=== PATIENT | female | born 1970 | race Caucasian/White ===

== ENCOUNTER 2016-05-12 08:29 | Observation (INO) | payer BC, OTHER ==
[2016-05-08 15:35] VITALS: Ht 167.6 cm; Wt 68.9 kg
[2016-05-08 15:50] VITALS: RESP 20; TEMP 98.6
[2016-05-12] VITALS (16 sets, daily range): BP systolic 84–110; RESP 12–20; TEMP 97.8–98.5
[~2016-05-12] VITALS: Ht 167.6 cm; Wt 68.9 kg
[2016-05-12] MEDS ORDERED: GLYCOPYRROLATE 0.2 MG/ML VIAL IV ONE (08:50)
[2016-05-12] MEDS ORDERED: MIDAZOLAM 2 MG/2 ML INJ IV ONE (08:50)
[2016-05-12] MEDS ORDERED: LACT RINGERS 1,000 ML IV SCH ×2 (08:50→14:15)
[2016-05-12] MEDS ORDERED: LIDOCAINE 1% BUFFERED 1 ML SYR INTRADERM PRN (08:50)
[2016-05-12] MEDS ORDERED: CEFAZOLIN (LD/OB) 100 ML IV ONE (09:43)
[2016-05-12] MEDS ORDERED: BUPIVACA/EPI 0.5% 50ML NERVEBLOCK ONE (10:11)
[2016-05-12] MEDS ORDERED: DEXAMETHASONE 4 MG/ML VIAL IV ONE (10:19)
[2016-05-12] MEDS ORDERED: ROCURONIUM 50 MG VIAL IV ONE (10:19)
[2016-05-12] MEDS ORDERED: ONDANSETRON 4 MG VIAL IV PUSH ONE (10:19)
[2016-05-12] MEDS ORDERED: ACETAMINOPHEN 1,000 MG/100 ML IV ONE (10:19)
[2016-05-12] MEDS ORDERED: PROPOFOL 50ML VIAL IV ONE (10:19)
[2016-05-12] MEDS ORDERED: KETOROLAC 30 MG/ML VIAL IV ONE (10:19)
[2016-05-12] MEDS ORDERED: LIDOCAINE 2% SYR 5 ML IV ONE (10:19)
[2016-05-12] MEDS ORDERED: DILAUDID 1 MG/ML AMP IV ONE (10:19)
[2016-05-12] MEDS ORDERED: FENTANYL 100 MCG/2 ML AMP IV ONE (10:19)
[2016-05-12] MEDS ORDERED: MORPHINE 4 MG/ML SYR IV PRN (12:15)
[2016-05-12] MEDS ORDERED: DILAUDID 1 MG/ML AMP IV PRN ×2 (12:15→14:15)
[2016-05-12] MEDS ORDERED: MORPHINE 2 MG/ML SYR IV PRN (12:15)
[2016-05-12] MEDS ORDERED: MEPERIDINE 25 MG/ML IV PRN (12:15)
[2016-05-12] MEDS ORDERED: ONDANSETRON 4 MG VIAL IV PRN ×2 (12:15→14:15)
[2016-05-12] MEDS ORDERED: OXYCODONE 5 MG TAB PO PRN (12:15)
[2016-05-12] MEDS ORDERED: PROMETHAZINE 25 MG/ML VIAL IV PRN (14:15)
[2016-05-12] MEDS ORDERED: ONDANSETRON ODT 4 MG TAB PO PRN (14:15)
[2016-05-12] MEDS: KETOROLAC 30 MG/ML VIAL IV SCH ×2 (14:59→20:40)
[2016-05-13 00:05] VITALS: BP_SYST 110; RESP 18; TEMP 98.5
[2016-05-13] MEDS: KETOROLAC 30 MG/ML VIAL IV SCH (02:47)
[2016-05-13 03:29] VITALS: BP_SYST 102; RESP 16; TEMP 98.3
[2016-05-13 07:13] VITALS: BP_SYST 117; RESP 16; TEMP 98.2
== END 2016-05-13 09:02 | disposition home or self-care (01) ==
LOC: ENRESERVDT → ENRESERVTM → SURG 08:29 → SDS 14:13 → 3S 14:53
PROVIDERS: ADMIT Obstetrics & Gynecology Reproductive Endocrinology; ATTEND Obstetrics & Gynecology Reproductive Endocrinology
DX: N94.6 Dysmenorrhea, unspecified (principal); D25.9 Leiomyoma of uterus, unspecified; Z87.891 Personal history of nicotine dependence
CPT/HCPCS: 58571; S2900; 85014; 85018; 85025; 88307; 94799